=== PATIENT | female | born 1980 | race Caucasian/White ===

== ENCOUNTER 2021-03-07 16:37 | Emergency (ER) | payer BC ==
[~2021-03-07] VITALS: Ht 160 cm; Wt 111.1 kg
[2021-03-07 16:44] VITALS: BP 170/89
[2021-03-07] MEDS ORDERED: XANAX2 MG PO (16:49)
[2021-03-07 17:54] LABS: URINE BILIRUBIN NEGATIVE (Negative); URINE BLOOD NEGATIVE (Negative); URINE CLARITY CLEAR; URINE COLOR YELLOW; URINE GLUCOSE-RANDOM* NEGATIVE (Negative); URINE KETONES NEGATIVE (Negative); URINE LEUKOCYTES-REFLEX NEGATIVE (Negative); URINE NITRITE-REFLEX NEGATIVE (Negative); URINE PROTEIN (DIPSTICK) NEGATIVE (Negative); URINE SPECIFIC GRAVITY 1.025 (1.005-1.035); URINE UROBILINOGEN 0.2 E.U./dl (0.2-1.0)
[2021-03-07 18:54] LABS: ABSOLUTE NEUTROPHILS 3.5 thou/uL (1.4-8.2); BASOPHILS 0.8 % (0.0-2.0); HEMOGLOBIN 13.7 gm/dL (12.0-15.0); LYMPHOCYTES 28.9 % (24.0-44.0); MCH 28.8 pg (26.0-34.0); MCHC 34.2 g/dL (28.0-37.0); MCV 84.3 fL (80.0-100.0); PLATELET COUNT 298 thou/uL (150-400); POLYS 64.3 % (36.0-66.0); RBC 4.74 mil/uL (4.20-5.00); RDW 13.9 % (10.5-14.5); WBC 5.5 thou/uL (4.0-11.0)
[2021-03-07 19:04] LABS: CALCIUM 8.8 mg/dL (8.5-10.1); CREATININE 0.6 mg/dL (0.6-1.0); POTASSIUM 4.3 mmol/L (3.5-5.1)
[2021-03-07 19:10] LABS: ALBUMIN 3.5 g/dL (3.4-5.0); TOTAL BILIRUBIN 0.4 mg/dL (0.2-1.0); TOTAL PROTEIN 7.5 g/dL (6.4-8.2)
[2021-03-07] MEDS ORDERED: HYDROCODON-ACE1 EAC7 PO (19:39)
[2021-03-07] MEDS ORDERED: ACYCLOVIR 400400 MG PO (19:39)
== END 2021-03-07 20:12 | disposition home or self-care (01) ==
LOC: ER 16:37
PROVIDERS: Nurse Practitioner
DX: B02.9 Zoster without complications (principal); R10.9 Unspecified abdominal pain; Z79.899 Other long term (current) drug therapy